=== PATIENT | female | born 1955 | race Caucasian/White ===

== ENCOUNTER 2020-06-14 18:36 | Inpatient (IN) | payer MEDICARE, MEDICAID ==
[~2020-06-14] VITALS: Ht 154.9 cm; Wt 79.0 kg
[2020-06-14 20:02] LABS: BASOPHILS % (AUTO) 0.7 % (0.0-2.0); EOSINOPHILS % (AUTO) 1.8 % (1.0-6.0); HEMOGLOBIN 13.6 g/dL (12.0-16.0); LYMPHOCYTES # (AUTO) 1.8 K/uL (1.0-4.8); LYMPHOCYTES % (AUTO) 25.5 % (22.0-44.0); MEAN CORPUSCULAR HEMOGLOBIN 28.5 pg (26.0-34.0); MEAN CORPUSCULAR HGB CONC 33.2 G/dL (31.0-37.0); MEAN CORPUSCULAR VOLUME 86 fL (80-100); MONOCYTES # (AUTO) 0.3 K/uL (0.1-1.0); MONOCYTES % (AUTO) 4.8 % (2.0-9.0); NEUTROPHILS # (AUTO) 4.7 K/uL (1.8-7.7); NEUTROPHILS % (AUTO) 67.2 % (40.0-70.0); PLATELET COUNT (AUTO) 237 K/uL (150-450); RED BLOOD CELL COUNT(AUTO) 4.77 MIL/uL (4.00-5.20); RED CELL DISTRIBUTION WIDTH 15.2 % (11.5-14.5)
[2020-06-14 20:10] LABS: ANION GAP 11 mmol/L (8-16); CALCIUM, TOTAL 9.6 mg/dL (8.8-10.5); CARBON DIOXIDE 28 mmol/L (22-29); CHLORIDE 100 mmol/L (98-107); CREATININE 0.94 mg/dL (0.60-1.30); GLOMERULAR FILTR. RATE CALC 60 mL/min (>60); GLUCOSE,RANDOM 198 mg/dL (70-110); SODIUM SERUM 139 mmol/L (136-145); UREA NITROGEN, BLOOD 20 mg/dL (7-18)
[2020-06-14] MEDS ORDERED: LORazepam 2 MG TABLET PO PRN (20:15)
[2020-06-14] MEDS ORDERED: ZOLPIDEM TARTRATE 10 MG TABLET PO PRN (20:15)
[2020-06-14] MEDS ORDERED: QUEtiapine FUMARATE 100 MG TABLET PO PRN (20:15)
[2020-06-14 20:16] LABS: ALANINE AMINOTRANSFERASE 39 U/L (12-78); ALKALINE PHOSPHATASE 103 U/L (46-116); ASPARTATE AMINOTRANSFERASE 20 U/L (15-37); BILIRUBIN,TOTAL 0.5 mg/dL (0.1-1.0); TOTAL PROTEIN, SERUM 7.6 g/dL (6.4-8.2)
[2020-06-14 20:17] LABS: INR 0.9 (0.9-1.1)
[2020-06-14] MEDS ORDERED: LISI-663 PO (20:22)
[2020-06-14] MEDS ORDERED: AMLO-387 PO (20:37)
[2020-06-14] MEDS ORDERED: LOVA-74 PO (20:37)
[2020-06-14] MEDS ORDERED: METF500S7 PO (20:37)
[2020-06-14] MEDS ORDERED: GABA-583 PO (20:37)
[2020-06-14] MEDS ORDERED: BACL10TA PO (20:37)
[2020-06-14] MEDS ORDERED: ALLO100T50 PO (20:37)
[2020-06-14] MEDS ORDERED: FURO-152 PO (20:37)
[2020-06-14 20:38] LABS: COVID AG,FIA SOURCE NASOPHARYNGEAL
[2020-06-14] MEDS ORDERED: EZET10TA13 PO (20:38)
[2020-06-14 20:47] LABS: APPEARANCE,URINE CLEAR (CLEAR); BILIRUBIN,URINE NEGATIVE (NEGATIVE); GLUCOSE, URINE (UA) NEGATIVE (NEGATIVE); KETONES,URINE TRACE mg/dL (NEGATIVE); LEUKOCYTE ESTERASE ,URINE NEGATIVE (NEGATIVE); NITRATE,URINE NEGATIVE (NEGATIVE); OCCULT BLOOD,URINE NEGATIVE (NEGATIVE); PROTEIN,URINE NEGATIVE (NEGATIVE); UROBILINOGEN,URINE 0.2 mg/dL (<=1.0)
[2020-06-14 20:59] LABS: AMPHET/METH SCREEN,URINE NEGATIVE (NEGATIVE); BARBITURATE SCREEN, URINE NEGATIVE (NEGATIVE); BENZODIAZEPINES SCREEN,URINE NEGATIVE (NEGATIVE); CANNABINOID SCREEN,URINE NEGATIVE (NEGATIVE); COCAINE SCREEN,URINE NEGATIVE (NEGATIVE); METHADONE SCREEN, URINE NEGATIVE (NEGATIVE); OPIATE SCREEN,URINE NEGATIVE (NEGATIVE)
[2020-06-14 21:00] LABS: PHENCYCLIDINE SCREEN,URINE NEGATIVE (NEGATIVE)
[2020-06-15 03:15] VITALS: BP 130/88
[2020-06-15] MEDS ORDERED: INFLUENZA VIRUS VACCINE QVS 2020-21 (6MO+)/PF 60 MCG/0.5 ML SYRINGE IM ONE (04:00)
[2020-06-15 09:44] VITALS: BP 163/93
[2020-06-15] MEDS: LOVASTATIN 20 MG TABLET PO SCH (10:30)
[2020-06-15] MEDS: GABAPENTIN 300 MG CAPSULE PO SCH ×3 (10:55→21:24)
[2020-06-15] MEDS: FUROSEMIDE 20 MG TABLET PO SCH (10:56)
[2020-06-15] MEDS: LISINOPRIL 20 MG TABLET PO SCH (10:56)
[2020-06-15] MEDS ORDERED: ALBUTEROL SULFATE HFA 90 MCG/PUFF 8 GM INHALER IH PRN (11:00)
[2020-06-15] MEDS ORDERED: MAGNESIUM HYDROXIDE SUSPENSION 30 ML UDCUP PO PRN (11:00)
[2020-06-15] MEDS ORDERED: DOCUSATE SODIUM 100 MG CAPSULE PO PRN (11:00)
[2020-06-15] MEDS ORDERED: BENZOCAINE/MENTHOL LOZENGE PO PRN (11:00)
[2020-06-15] MEDS ORDERED: MAG HYDROX/AL HYDROX/SIMETH ES 30 ML SUSPENSION UDCUP PO PRN (11:00)
[2020-06-15] MEDS ORDERED: BACITRACIN 28 GM OINTMENT TP PRN (11:00)
[2020-06-15] MEDS ORDERED: IBUPROFEN 600 MG TABLET PO PRN (11:00)
[2020-06-15] MEDS ORDERED: ACETAMINOPHEN 325 MG TABLET PO PRN (11:00)
[2020-06-15] MEDS ORDERED: LOPERAMIDE HCL 2 MG CAPSULE PO PRN (11:00)
[2020-06-15] MEDS ORDERED: OMEPRAZOLE 20 MG CAPSULE PO PRN (11:00)
[2020-06-15] MEDS ORDERED: ONDANSETRON HCL 4 MG TABLET PO PRN (11:00)
[2020-06-15] MEDS ORDERED: CloNIDine HCL 0.1 MG TABLET PO PRN (11:00)
[2020-06-15] MEDS ORDERED: PETROLATUM,WHITE 28 GM JELLY TP PRN (11:00)
[2020-06-15] MEDS: AmLODIPine BESYLATE 5 MG TABLET PO SCH ×2 (11:06→11:19)
[2020-06-15] MEDS: MetFORMIN HCL 850 MG TABLET PO SCH ×2 (11:18→21:22)
[2020-06-15] MEDS: ALLOPURINOL 100 MG TABLET PO SCH ×2 (15:52→21:22)
[2020-06-15 16:10] VITALS: BP 142/85
[2020-06-15] MEDS: BACLOFEN 10 MG TABLET PO SCH (19:30)
[2020-06-15] MEDS: RIVAROXABAN 10 MG TABLET PO SCH (21:20)
[2020-06-16 00:18] VITALS: BP 134/82
[2020-06-16] MEDS: MetFORMIN HCL 850 MG TABLET PO SCH ×3 (06:54→21:01)
[2020-06-16 08:23] VITALS: BP 163/95
[2020-06-16] MEDS: GABAPENTIN 300 MG CAPSULE PO SCH ×3 (08:46→16:56)
[2020-06-16] MEDS: FUROSEMIDE 20 MG TABLET PO SCH (08:46)
[2020-06-16] MEDS: ASPIRIN 81 MG DR TABLET PO SCH (08:46)
[2020-06-16] MEDS: LISINOPRIL 20 MG TABLET PO SCH (08:46)
[2020-06-16] MEDS: ALLOPURINOL 100 MG TABLET PO SCH ×4 (08:47→21:01)
[2020-06-16] MEDS: LOVASTATIN 20 MG TABLET PO SCH (08:47)
[2020-06-16] MEDS: EZETIMIBE 10 MG TABLET PO SCH (08:47)
[2020-06-16] MEDS: BACLOFEN 10 MG TABLET PO SCH ×3 (08:47→21:01)
[2020-06-16 12:14] VITALS: BP 131/90
[2020-06-16 16:15] VITALS: BP 141/84
[2020-06-16] MEDS: RIVAROXABAN 10 MG TABLET PO SCH (20:59)
[2020-06-17 06:05] VITALS: BP 120/74
[2020-06-17 08:28] VITALS: BP 147/96
[2020-06-17] MEDS: MetFORMIN HCL 850 MG TABLET PO SCH ×2 (08:45→20:27)
[2020-06-17] MEDS: ALLOPURINOL 100 MG TABLET PO SCH ×2 (08:45→20:27)
[2020-06-17] MEDS: EZETIMIBE 10 MG TABLET PO SCH (08:45)
[2020-06-17] MEDS: BACLOFEN 10 MG TABLET PO SCH ×2 (08:46→20:26)
[2020-06-17] MEDS: LISINOPRIL 20 MG TABLET PO SCH (08:46)
[2020-06-17] MEDS: GABAPENTIN 400 MG CAPSULE PO SCH (08:46)
[2020-06-17] MEDS: FUROSEMIDE 20 MG TABLET PO SCH (08:46)
[2020-06-17] MEDS: ASPIRIN 81 MG DR TABLET PO SCH (09:08)
[2020-06-17] MEDS: AmLODIPine BESYLATE 5 MG TABLET PO SCH (09:08)
[2020-06-17 16:22] VITALS: BP 139/83
[2020-06-17] MEDS: RIVAROXABAN 10 MG TABLET PO SCH (20:27)
[2020-06-17] MEDS ORDERED: LOVASTATIN 20 MG TABLET PO SCH (21:00)
[2020-06-17] MEDS ORDERED: GABAPENTIN 300 MG CAPSULE PO SCH (21:00)
[2020-06-18 00:18] VITALS: BP 144/83
[2020-06-18 07:54] LABS: CHOL/HDL RATIO 3.3 (3.9-5.7)
[2020-06-18 08:27] VITALS: BP 162/90
[2020-06-18] MEDS ORDERED: METOPROLOL TARTRATE 25 MG TABLET PO SCH (09:00)
[2020-06-18] MEDS ORDERED: METOPROLOL TARTRATE 50 MG TABLET PO SCH (09:00)
[2020-06-18] MEDS: LISINOPRIL 20 MG TABLET PO SCH (09:25)
[2020-06-18] MEDS: GABAPENTIN 400 MG CAPSULE PO SCH (09:25)
[2020-06-18] MEDS: FUROSEMIDE 20 MG TABLET PO SCH (09:25)
[2020-06-18] MEDS: MetFORMIN HCL 850 MG TABLET PO SCH (09:25)
[2020-06-18] MEDS: ALLOPURINOL 100 MG TABLET PO SCH (09:26)
[2020-06-18] MEDS: BACLOFEN 10 MG TABLET PO SCH (09:26)
[2020-06-18] MEDS: EZETIMIBE 10 MG TABLET PO SCH (09:26)
[2020-06-18] MEDS: AmLODIPine BESYLATE 5 MG TABLET PO SCH (09:43)
[2020-06-18] MEDS: ASPIRIN 81 MG DR TABLET PO SCH (09:44)
[2020-06-18] MEDS ORDERED: METO50 PO (13:37)
[2020-06-18] MEDS ORDERED: RIVA10 PO (13:38)
[2020-06-18] MEDS ORDERED: GABA-1201 PO (13:40)
[2020-06-18] MEDS ORDERED: GABA-1181 PO (13:40)
== END 2020-06-18 14:27 | disposition home or self-care (01) | DRG 881 ==
LOC: EMS 18:36 → B2X 22:00
PROVIDERS: ADMIT Psychiatry & Neurology Psychiatry; ATTEND Psychiatry & Neurology Psychiatry
DX: F32.9 Major depressive disorder, single episode, unspecified (principal); E11.65 Type 2 diabetes mellitus with hyperglycemia; R45.851 Suicidal ideations; I10 Essential (primary) hypertension; K21.9 Gastro-esophageal reflux disease without esophagitis; K59.00 Constipation, unspecified; G47.00 Insomnia, unspecified; Z20.822 Contact with and (suspected) exposure to COVID-19; F17.200 Nicotine dependence, unspecified, uncomplicated; F12.90 Cannabis use, unspecified, uncomplicated; M10.9 Gout, unspecified; E66.9 Obesity, unspecified; F41.9 Anxiety disorder, unspecified; Z86.73 Personal history of transient ischemic attack (TIA), and cerebral infarction without residual deficits; Z28.21 Immunization not carried out because of patient refusal
CPT/HCPCS: 87426; 99285; G0480